=== PATIENT | female | born 2000 | race Caucasian/White ===

== ENCOUNTER 2020-10-13 01:53 | Emergency (ER) | payer OTHER ==
[~2020-10-13 01:53] MED LIST: AMOXICILLIN500 MG PO; BENTYL 20MG TAB20 MG PO; CLARITIN10 MG PO; COLACE 100MG C100 MG PO; COLACE100 MG PO; DELSYM30 MG/5 ML PO; IBU600 MG PO; IBUPROFEN600 MG PO; KEFLEX CAP 500500 MG PO; LORTAB 5-325 M1 EACH PO; PRENATAL VITAM1 EAC8 PO; TRANDATE 100 M100 MG PO; ZOFRAN ODT 4 MG4 MG PO
[2020-10-13 02:37] LABS: HEMOGLOBIN 12.5 gm/dl (12.3-15.3); RED BLOOD COUNT 4.93 M/UL (4.00-5.10); WHITE BLOOD COUNT 12.8 K/UL (4.5-11.0)
[2020-10-13 02:57] LABS: BUN/CREATININE RATIO 10 (0-10)
[2020-10-13] MEDS ORDERED: OMNICEF 300 MG300 MG PO (03:36)
[2020-10-13] MEDS ORDERED: ZOFRAN ODT 4 MG4 MG PO (03:36)
== END 2020-10-13 04:11 | disposition home or self-care (01) ==
LOC: ER1 01:53
PROVIDERS: Physician Assistant
DX: N39.0 Urinary tract infection, site not specified (principal); I10 Essential (primary) hypertension
CPT/HCPCS: 80053; 81001; 83605; 83690; 84703; 85025; 87086; 96374; 99284; J0696

== ENCOUNTER 2021-05-15 21:09 | Emergency (ER) | payer OTHER ==
[~2021-05-15 21:09] MED LIST changes: +OMNICEF 300 MG300 MG PO
[2021-05-15 22:18] LABS: HEMOGLOBIN 11.9 gm/dl (12.3-15.3); RED BLOOD COUNT 4.9 M/UL (4.00-5.10); WHITE BLOOD COUNT 7.4 K/UL (4.5-11.0)
== END 2021-05-16 01:21 | disposition home or self-care (01) ==
LOC: ER1 21:09
PROVIDERS: Emergency Medicine
DX: O26.892 Other specified pregnancy related conditions, second trimester (principal); R10.9 Unspecified abdominal pain; O10.912 Unspecified pre-existing hypertension complicating pregnancy, second trimester; Z3A.16 16 weeks gestation of pregnancy
CPT/HCPCS: 76815; 84702; 85025; 85610; 85730; 99284

== ENCOUNTER 2021-05-29 14:46 | Emergency (ER) | payer OTHER ==
[2021-05-29 16:22] LABS: HEMOGLOBIN 12.3 gm/dl (12.3-15.3); RED BLOOD COUNT 4.91 M/UL (4.00-5.10); WHITE BLOOD COUNT 12.2 K/UL (4.5-11.0)
[2021-05-29 16:51] LABS: BUN/CREATININE RATIO 8 (0-10)
[2021-05-29] MEDS ORDERED: CEPHALEXIN500 M1 PO (18:09)
== END 2021-05-29 18:22 | disposition home or self-care (01) ==
LOC: ER1 14:46
PROVIDERS: Physician Assistant
DX: O23.92 Unspecified genitourinary tract infection in pregnancy, second trimester (principal); O9A.212 Injury, poisoning and certain other consequences of external causes complicating pregnancy, second trimester; S40.011A Contusion of right shoulder, initial encounter; Z3A.19 19 weeks gestation of pregnancy; O16.2 Unspecified maternal hypertension, second trimester
CPT/HCPCS: 73030; 76815; 80053; 81001; 83690; 85025; 87086; 99284

== ENCOUNTER 2021-07-07 18:14 | Outpatient (CLI) | payer OTHER ==
[~2021-07-07 18:14] MED LIST changes: +CEPHALEXIN500 M1 PO
== END 2021-07-08 08:34 | disposition home or self-care (01) ==
LOC: GENOP 18:14
DX: O99.891 Other specified diseases and conditions complicating pregnancy (principal); M54.50 Low back pain, unspecified; R10.9 Unspecified abdominal pain; O10.912 Unspecified pre-existing hypertension complicating pregnancy, second trimester; Z87.891 Personal history of nicotine dependence; Z3A.23 23 weeks gestation of pregnancy
CPT/HCPCS: 81001; 82731; 87210; 96372

== ENCOUNTER 2021-07-09 11:42 | Outpatient (CLI) | payer OTHER | END 2021-07-09 12:33 | disposition home or self-care (01) | LOC: GENOP 11:42 | DX: Z29.8 Encounter for other specified prophylactic measures (principal); Z3A.23 23 weeks gestation of pregnancy | CPT/HCPCS: 96372; J0702 ==

== ENCOUNTER 2021-07-10 15:17 | Outpatient (CLI) | payer OTHER | END 2021-07-10 16:53 | disposition home or self-care (01) | LOC: GENOP 15:17 | DX: O99.891 Other specified diseases and conditions complicating pregnancy (principal); M54.9 Dorsalgia, unspecified; O10.912 Unspecified pre-existing hypertension complicating pregnancy, second trimester; Z87.891 Personal history of nicotine dependence; Z3A.24 24 weeks gestation of pregnancy | CPT/HCPCS: G0463; J0702 ==

== ENCOUNTER 2021-08-19 22:53 | Outpatient (CLI) | payer OTHER | END 2021-08-20 00:23 | disposition home or self-care (01) | LOC: GENOP 22:53 | DX: O34.63 Maternal care for abnormality of vagina, third trimester (principal); Z3A.30 30 weeks gestation of pregnancy | CPT/HCPCS: 59025; 81001 ==

== ENCOUNTER 2021-10-03 23:38 | Outpatient (CLI) | payer OTHER | END 2021-10-03 23:40 | disposition home or self-care (01) | LOC: GENOP 23:38 | DX: O99.891 Other specified diseases and conditions complicating pregnancy (principal); R10.2 Pelvic and perineal pain; M54.9 Dorsalgia, unspecified; Z3A.36 36 weeks gestation of pregnancy | CPT/HCPCS: 81001 ==

== ENCOUNTER 2021-10-10 16:36 | Inpatient (IN) | payer OTHER ==
[2021-10-10 19:07] LABS: HEMOGLOBIN 11.2 gm/dl (12.3-15.3); RED BLOOD COUNT 4.57 M/UL (4.00-5.10); WHITE BLOOD COUNT 13.4 K/UL (4.5-11.0)
[2021-10-11] MEDS ORDERED: IBUPROFEN600 MG PO (16:23)
[2021-10-11] MEDS ORDERED: DOCUSATE SODIU100 MG PO (16:23)
[2021-10-12 04:33] LABS: HEMOGLOBIN 10.8 gm/dl (12.3-15.3)
== END 2021-10-13 16:13 | disposition home or self-care (01) | DRG 806 ==
LOC: GENOP 16:36 → OB 18:25
PROVIDERS: ADMIT Obstetrics & Gynecology
PROC: 10E0XZZ Delivery of Products of Conception, External Approach (ICD-10-PCS; principal; 2021-10-11)
PROC: 10907ZC Drainage of Amniotic Fluid, Therapeutic from Products of Conception, Via Natural or Artificial Opening (ICD-10-PCS; 2021-10-11)
PROC: 0HQ9XZZ Repair Perineum Skin, External Approach (ICD-10-PCS; 2021-10-11)
PROC: 3E033VJ Introduction of Other Hormone into Peripheral Vein, Percutaneous Approach (ICD-10-PCS; 2021-10-11)
PROC: 0UH97HZ Insertion of Contraceptive Device into Uterus, Via Natural or Artificial Opening (ICD-10-PCS; 2021-10-11)
PROC: 4A1H7CZ Monitoring of Products of Conception, Cardiac Rate, Via Natural or Artificial Opening (ICD-10-PCS; 2021-10-11)
PROC: 10H073Z Insertion of Monitoring Electrode into Products of Conception, Via Natural or Artificial Opening (ICD-10-PCS; 2021-10-11)
PROC: 3E0234Z Introduction of Serum, Toxoid and Vaccine into Muscle, Percutaneous Approach (ICD-10-PCS; 2021-10-11)
DX: O36.5930 Maternal care for other known or suspected poor fetal growth, third trimester, not applicable or unspecified (principal); O10.92 Unspecified pre-existing hypertension complicating childbirth; Z37.0 Single live birth; O99.214 Obesity complicating childbirth; E66.9 Obesity, unspecified; Z3A.37 37 weeks gestation of pregnancy; O99.334 Smoking (tobacco) complicating childbirth; Z87.891 Personal history of nicotine dependence; O70.0 First degree perineal laceration during delivery; Z90.49 Acquired absence of other specified parts of digestive tract; Z23 Encounter for immunization
CPT/HCPCS: 36415; 36600; 81001; 82800; 85014; 85018; 85025; 90715; J2405; J2590